=== PATIENT | female | born 1995 | race African-American/Black ===

== ENCOUNTER 2017-09-16 17:30 | Emergency (ER) | payer SELFPAY, OTHER | END 2017-09-16 19:30 | disposition left against medical advice (07) | LOC: E/R 17:30 → FTE 19:30 | DX: Z53.21 Procedure and treatment not carried out due to patient leaving prior to being seen by health care provider (principal) ==

== ENCOUNTER 2019-03-29 13:20 | Day surgery (SDC) | payer OTHER ==
[2019-03-29] MEDS ORDERED: FENTAnyl 50 MCG/ML VIAL IV ×2 (15:30)
[2019-03-29] MEDS ORDERED: ONDANSETRON 4 MG INJ IV (15:30)
[2019-03-29] MEDS ORDERED: OXYCODONE/ACETAMINOPHEN (5/325) TAB PO (15:30)
[2019-03-29] MEDS ORDERED: FENTAnyl 50 MCG/ML VIAL (16:19)
[2019-03-29] MEDS ORDERED: DEXAMETHASONE 4 MG/ML 5 ML INJ (16:19)
[2019-03-29] MEDS ORDERED: PROPOFOL 20 ML (16:19)
[2019-03-29] MEDS ORDERED: ONDANSETRON 4 MG INJ (16:19)
[2019-03-29] MEDS ORDERED: ROCURONIUM 50 MG INJ ×2 (16:24→16:35)
[2019-03-29] MEDS ORDERED: GLYCOPYRROLATE 0.4 MG INJ (16:35)
[2019-03-29] MEDS ORDERED: NEOSTIGMINE 3 MG/3 ML SYRINGE (16:35)
[2019-03-29] MEDS: FENTAnyl 50 MCG/ML VIAL IV ×3 (17:11→17:25)
== END 2019-03-29 18:21 | disposition home or self-care (01) ==
LOC: SDS 13:20
DX: J35.01 Chronic tonsillitis (principal)
CPT/HCPCS: 42826; 88302